=== PATIENT | male | born 2005 | race Caucasian/White ===

== ENCOUNTER 2023-08-04 01:45 | Emergency (ER) | payer BC ==
[~2023-08-04] VITALS: Ht 182.9 cm; Wt 65.9 kg
[~2023-08-04 01:45] MED LIST changes: -DORYX100 PO; -DOXYCYCLINE HY100 MG PO
[2023-08-04 02:45] LABS: BASO # 0.1 K/mm3 (0.0-0.2); BASO % 0.8 % (0.0-2.0); EOS # 0.2 K/mm3 (0.0-0.7); GRAN # 4.8 K/mm3 (1.4-6.5); GRAN % 57.3 % (42.2-75.2); HEMATOCRIT 43.3 % (36.0-47.0); HEMOGLOBIN 15.4 g/dl (12.5-16.1); LYMPH # 2.5 K/mm3 (1.2-3.4); LYMPH % 30.3 % (20.0-51.0); MEAN CELL VOLUME 84 fl (80.0-95.0); MEAN CORPUSCULAR HEMOGLOBIN 30 pg (26-32); MEAN CORPUSCULAR HGB CONC 36 g/dl (33.0-37.0); MEAN PLATELET VOLUME 9.1 fl (7.4-10.4); MONO # 0.8 K/mm3 (0.1-0.6); MONO % 9.4 % (1.7-9.3); PLATELET COUNT 267 K/mm3 (130-400); RED BLOOD COUNT 5.16 M/mm3 (4.20-5.60); REDCELL DISTRIBUTION WIDTH-CV 12.3 % (11.5-14.5)
[2023-08-04 02:49] LABS: ALBUMIN 4.4 gm/dL (3.5-5.0); BILIRUBIN,TOTAL 0.7 mg/dL (0.2-1.2); CALCIUM 9.4 mg/dL (8.4-10.2); CREATININE, serum 0.92 mg/dL (0.72-1.25); POTASSIUM 3.9 mmol/L (3.5-4.5); TOTAL PROTEIN 7.4 gm/dL (6.2-8.1)
[2023-08-04 03:01] LABS: COLLECTION METHOD CLEAN CATCH
[2023-08-04 03:36] LABS: URINE APPEARANCE Clear (CLEAR/HAZY); URINE BLOOD Negative (NEGATIVE); URINE COLOR Yellow (YELLOW); URINE GLUCOSE Negative (NEGATIVE); URINE KETONE Negative (NEGATIVE); URINE NITRATE Negative (NEGATIVE); URINE PROTEIN(semi-quant) Negative (NEGATIVE); URINE UROBILINOGEN 0.2 E.U/dL (0.2-1.0)
[2023-08-04 03:37] LABS: SQUAMOUS EPITHELIAL 0-2 /hpf (0-10); URINE BACTERIA None Seen /hpf (NONE SEEN); URINE RBC None Seen /hpf (0-2)
[2023-08-04] MEDS ORDERED: DORYX100 PO (03:53)
[2023-08-04 04:14] VITALS: BP 120/72; PULSE 61; TEMP 97.5
[2023-08-05] MEDS ORDERED: DOXYCYCLINE HY100 MG PO (15:02)
== END 2023-08-04 04:14 | disposition home or self-care (01) ==
LOC: COL.ER 01:45
PROVIDERS: Emergency Medicine
DX: N50.812 Left testicular pain (principal); Z88.0 Allergy status to penicillin
CPT/HCPCS: J0696; J1885

== ENCOUNTER → 2023-08-04 | Outpatient (CLI) | payer BC ==
[~2023-08-04] MED LIST: CIPRO 500MG TA500 MG PO; DORYX100 PO; DOXYCYCLINE HY100 MG PO
== END ==
LOC: COL.RAD 05:30
DX: N50.819 Testicular pain, unspecified (principal)

== ENCOUNTER 2023-08-09 20:04 | Emergency (ER) | payer BC ==
[~2023-08-09] VITALS: Ht 182.9 cm; Wt 65.9 kg
[~2023-08-09 20:04] MED LIST changes: +DORYX100 PO; +DOXYCYCLINE HY100 MG PO
[2023-08-09 21:31] VITALS: BP 130/75; PULSE 94; TEMP 97.5
== END 2023-08-09 21:31 | disposition home or self-care (01) ==
LOC: COL.ER 20:04
DX: N50.812 Left testicular pain (principal); R42 Dizziness and giddiness